=== PATIENT | female | born 1950 | race Caucasian/White ===

== ENCOUNTER → 2019-06-14 11:50 | Outpatient (CLI) | payer OTHER, SELFPAY | PROVIDERS: Visit Provider Orthopaedic Surgery | DX: Z01.818 Encounter for other preprocedural examination (principal); Z01.812 Encounter for preprocedural laboratory examination | CPT/HCPCS: 93005; 93010 ==

== ENCOUNTER 2019-06-27 07:38 | Inpatient (IN) | payer OTHER, SELFPAY ==
[2019-06-16 13:03] VITALS: BMI 24.7
[2019-06-27] VITALS (14 sets, daily range): BP systolic 92–129; BP diastolic 55–78; PULSE 59–102; RESP 13–18; TEMP 35.6–36.6; O2SAT 92–100; BMI 25.0
--- NOTE | 2019-06-27 06:00 | DI.RAD.S_ITS ---
PROCEDURE: XR HIP W PEL IF DONE RT 2V INDICATIONS: post-op TECHNIQUE: 1 view(s) of the pelvis acquired. COMPARISON: None. FINDINGS: Bones: Patient is status post right hip arthroplasty, with hardware components in expected positions. The hip joint appears congruent. The visualized bony structures appear intact. Moderate left hip joint degeneration. Soft tissues: Overlying postoperative changes are noted. No suspicious soft tissue densities. IMPRESSION: Right hip arthroplasty with prosthesis in anatomic alignment. Dictated by: Edie Ibarra M.D. on 06/27/2019 at 12:50 Approved by: Edie Ibarra M.D. on 06/27/2019 at 12:51
[2019-06-27] MEDS: LACTATED RINGERS 1,000 ML 42 ML IV ×2 (08:30→11:18)
[2019-06-27] MEDS: ACETAMINOPHEN 325 MG TABLET 975 MG PO ×3 (08:31→20:38)
[2019-06-27] MEDS: PREGABALIN 75 MG CAPSULE PO (08:32)
[2019-06-27] MEDS: CELECOXIB 200 MG CAPSULE PO (08:32)
--- NOTE | 2019-06-27 09:41 | PM.PREOP ---
Pre-operative Note Interval Note History & Physical reviewed/Exam performed by Physician: Yes Changes to H&P: No
--- NOTE | 2019-06-27 10:03 | SUR.OPER ---
Lateral on padded OR bed. Gel axillary roll. Arms secured on padded armboard with pillow supporting top arm. Padded hip positioner braces x4 - anterior and posterior chest and pelvis. Additional gel pad used anterior pelvis. Gel pad under bottom leg from knee to foot and secured with tape over sheet.
[2019-06-27] MEDS: CEFAZOLIN 2 GM/100 ML FROZ.PIGGY IV ×2 (10:15→17:46)
[2019-06-27] MEDS: KETOROLAC 30 MG/ML VIAL IV (10:51)
[2019-06-27] MEDS: MORPHINE 4 MG/ML INJ INJ (10:51)
[2019-06-27] MEDS: ROPIVACAINE 0.5% PF 5 MG/ML 20ML VIAL 60 ML INJ (10:51)
[2019-06-27] MEDS: TRANEXAMIC ACID 1,000 MG VIAL 1000 MG INJ ×2 (10:52→11:43)
--- NOTE | 2019-06-27 11:51 | P.OP_ITS ---
Operative Date/Time/Diagnoses Date of procedure: 06/27/19 Time of procedure: 11:51 Pre-op diagnosis: Right hip degenerative joint disease Post-op diagnosis: same Procedure & Clinicians Procedure: Right total hip arthroplasty (CPT code 06533 with floor covering printer assistant) Same procedure as scheduled: Yes Indications: Patient is an 69-year-old female with severe right hip DJD. The patient has pain with activities and at rest, limited ambulation and activity tolerance, difficulties with ADLs, and failure of conservative treatment. We have discussed the nature of condition, treatment options, risks and benefits, and patient elects to proceed with total hip arthroplasty and gives informed consent. Surgeon: Jonnathan Mcpherson Frit Coater: Mejia Dasilva Anesthesia Type: General and Spinal Operative Notes Closure Type: primary Specimen(s): none sent Prosthetic devices, grafts, tissues, transplants, or devices: Acetabulum: Pires and Nephew R3 acetabular component size 52 mm Femoral component: Pires [employer] Nephew Anthology stem size 9 with standard offset Femoral head: 36 mm + 4 Oxinium Estimated Blood Loss (mL): 200 Blood products transfused: none Procedure in detail: After satisfaction induction of anesthetic, and administration of IV antibiotics, the patient was positioned in the lateral decubitus position with all bony prominences well padded and pelvic position secured using a hip horticulture/floriculture teacher positioning device. Right hip and lower extremity prepped and draped in the usual sterile fashion, 1st dose of intravenous tranexamic acid was administered, then a longitudinal incision was created centered over the greater trochanter and carried sharply through the skin and subcutaneous tissues down to the fascia jr which was divided longitudinally and retracted with a Charnley retractor. External rotators visualize, cut, tagged, and retracted posteriorly, then the capsule was cut in a T-type fashion with the corners tagged and retracted. Hip was dislocated and femoral neck cut made according to preoperative templating. Acetabular retractors then placed, and the acetabular labrum and osteophytes were excised. The acetabulum was then sequentially reamed to 51 mm with an excellent circumferential ream and fit with the trial. The trial component was removed and a permanent size 52 mm Pires [employer] Nephew R3 acetabular component was selected, positioned, and impacted with satisfactory position and fixation achieved. Permanent liner was then inserted with the elevated lip directed posteriorly. Soft tissue then removed off the lateral femoral neck in the lateral neck was entered using a box osteotome. T- handled reamers placed down the canal followed by sequential broaching to 9 with the final broach left in place for trial reduction which demonstrated excellent leg length, range of motion, and stability characteristics with a 36 mm +4 trial ball. The trial and broach were removed, and a permanent size 9 Pires [employer] Nephew Anthology stem was selected and inserted with excellent position and fixation achieved. Another trial reduction yielded the above characteristics so the trial ball was exchanged for a permanent 36 mm +4 Oxinium ball. The hip was irrigated and reduced and excellent leg length range of motion and stability characteristics were achieved and maintained. Periarticular tissues were infiltrated with a combination of ropivacaine, morphine, and Toradol. The hip was copiously irrigated, and the capsule repaired with #2 Ethibond, and the piriformis was repaired back to the greater trochanter with the same. Fascia jr closed with interrupted #1 Ethibond sutures, and the subcutaneous tissues were closed in 2 layers of 0 Vicryl and 2 0 Vicryl. Skin was closed with felix and sterile dressings applied. Second dose of tranexamic acid was administered intravenously, and the anesthetic was terminated. Complications: none Post-operative Condition: stable Disposition: PACU Plan for aftercare: Patient will be admitted to the acute care [facility], and anticipate discharge on postop day 1 with follow-up in office in 10-14 days. Outpatient physical therapy will be arranged and patient will continue to observe posterior hip precautions. Patient will continue use of postoperative Lovenox for 10 days postop.
--- NOTE | 2019-06-27 12:16 | SUR.PHASEI ---
Report called to Adilia
--- NOTE | 2019-06-27 12:33 | SUR.PHASEI ---
Pt transferred to the floor with belongings bag, cane and glasses. VS stable. Report to Rupali Jay. IV saline locked. Spinal level at L3. Rt hip drsg cdi, +PP x2, no movement to ble.
[2019-06-27] MEDS: LACTATED RINGERS 1,000 ML 125 ML IV (13:14)
[2019-06-27] MEDS: ATORVASTATIN 20 MG TABLET PO (20:38)
[2019-06-28 00:04] VITALS: BP 114/67; PULSE 71; RESP 12; TEMP 37.2; O2SAT 97
[2019-06-28] MEDS: CEFAZOLIN 2 GM/100 ML FROZ.PIGGY IV (01:17)
[2019-06-28 03:40] VITALS: BP 101/60; PULSE 76; RESP 16; TEMP 36.5; O2SAT 96
[2019-06-28] MEDS: IBUPROFEN 400 MG TABLET PO (03:46)
[2019-06-28] MEDS: diphenhydrAMINE 50 MG/ML VIAL 25 MG IV (03:46)
[2019-06-28 05:44] LABS: Hematocrit 31.2 % (36-46); Hemoglobin 10.7 g/dL (12.0-16.0)
[2019-06-28 07:30] VITALS: BP 107/49; PULSE 73; RESP 16; TEMP 36.6; O2SAT 96
[2019-06-28] MEDS: ENOXAPARIN 40 MG/0.4 ML SYRINGE SUBCUT (08:58)
[2019-06-28 09:04] VITALS: PULSE 79; RESP 16; O2SAT 98
[2019-06-28] MEDS: ACETAMINOPHEN 325 MG TABLET 975 MG PO (09:12)
[2019-06-28] MEDS: OXYCODONE/ACETAMINOPHEN 5/325 TABLET 1 TAB PO (09:13)
--- NOTE | 2019-06-28 09:20 | PT.IIE ---
Current Diagnoses Unilateral primary osteoarthritis, right hip (06/27/19) Surgery Performed Operation Date: 06/27/19 09:45 Actual Procedures p Total Hip Arthroplasty(Right) - Jonnathan Mcpherson MD Surgical History (Last Updated 06/16/19 @ 13:11 by Bibi Herrera RN) Hx of bursectomy (Acute) Hx of decompressive lumbar laminectomy (Acute) Hx of tonsillectomy (Acute) Medical History (Last Updated 06/16/19 @ 13:11 by Bibi Herrera RN) BCC (basal cell carcinoma), ear (Acute) Easy bruisability (Acute) HTN (hypertension) (Acute) Pre-diabetes (Acute) Psoriasis (Acute) Physical Therapy Inpatient Evaluation/Re-Eval M1 PT/OT-IP Prior Functional Status Start: 06/28/19 13:51 Freq: NEEDED Status: Active Protocol: Document 06/28/19 09:20 AB (Rec: 06/28/19 14:00 AB [id number]) Medical Review Prior Functional Status Medical History Reviewed Yes Communication able to make needs known Mobility and Gait pt stated that she is modified independent with all mobilities and ambulation using SPC Social History Household Members significant other Living Arrangements House Number of Floors (Floors) 3 or More Floors Number of Stairs To Enter/Railing? pt stays on main level of the house has 2 steps to enter with R handle bar by side of the door Home Environment Standard Height Toilet,Walk in Shower,Built-In Shower Seat Home Equipment Front Wheel Walker,Straight Cane,Raised Toilet Seat Without Armrests,Hand Held Shower M2 PT-IP Current Condition Start: 06/28/19 13:51 Freq: NEEDED Status: Active Protocol: Document 06/28/19 09:20 AB (Rec: 06/28/19 14:00 AB [id number]) Physical Therapy Current Condition Current Condition Evaluation Date 06/28/19 Treatment Diagnosis s/p R TONY posterior approach; difficulty in walking Onset Date 06/27/19 Precautions Posterior Hip Precautions No Hip Flexion > 90 degrees,No Hip Internal Rotation,No Hip Adduction Weight Bearing Status Weight Bearing Status Weight Bear as Tolerated M3 PT-IP Subjective Start: 06/28/19 13:51 Freq: NEEDED Status: Active Protocol: Document 06/28/19 09:20 AB (Rec: 06/28/19 14:00 AB [id number]) Subjective Physical Therapy Visit Type Type Initial Evaluation Visit Start Time 09:20 Visit Stop Time 10:17 Total Visit Minutes 57 Number of QUARRYMAN Visits 0 Physical Therapy Visit Comments Patient Comments pt agreeable to do PT Patient Goals to go home Therapy Pain Assessment Pain When Pain Assessed At Rest Pain Present Pain Present Pain Reported Location Right Hip Intensity 4 Scale Used Numeric (1 - 10) Pain Management Techniques Re-positioning,Timing of Activity with Medications M4 PT-IP Mobility and Gait Start: 06/28/19 13:51 Freq: NEEDED Status: Active Protocol: Document 06/28/19 09:20 AB (Rec: 06/28/19 14:00 [id number]) PT-Bed Mobility Assessment Supine to Sit Supine to Sit Standby Assistance Sit to Supine Sit to Supine Standby Assistance Scooting Scooting to Edge of Bed Standby Assistance PT-Transfer Assessment Sit to and From Stand Sit to and from Stand Contact Guard Assistance,1 Person Assistance,Use of Upper Extremities Equipment Transfer Assistive Device Gait Belt,Front Wheeled Walker Orthotic/Prosthetic Devices or Brace: No Transfers Transfer Destination Chair Transfer Technique pt ambulated using FWW Transfer Ability Level of Assist Contact Guard Assistance,1 Person Assistance Comments Mobility Comments requires cues to maintain hip precautions Gait Assessment Gait Gait Assistance Required: Contact Guard Assist Distance (Feet) 100 Able to Maintain Weight Bearing Status Yes During Gait Assistive Devices Assistive Device Gait Belt,Front Wheeled Walker Orthotic/Prosthetic Devices or Brace: No Gait Deviations General Gait Pattern Antalgic,Decreased Stride Length,Decreased Feet Clearance Factors Limiting Gait Function Factors Limiting Gait Function Decreased Activity Tolerance, Decreased Strength,Difficulty Following Directions,Limited Range of Motion,Pain,Poor Balance,Poor Safety Awareness Comments Gait Comments requires cues to activate quad muscles Stair Climbing Assessment Evaluation Level of Assist On Stairs Minimal Assistance,1 Person Assistance Devices Stair Climbing Assistive Devices Straight Cane,Right Railing Technique/Endurance Stair Climbing Direction Ascend and Descend Stair Climbing Technique Step to Step Number of Steps Climbed 3 Query Text: Stair Climbing Set # Repetitions (reps) 2 Comments Stair Climbing Comments completed up/down steps using R rail and SPC requiring CGA to min A and max cues; completed up/down steps again using SPC and WEBSITE DESIGNER and requiring min A and max cues. PT-Balance Assessment Sitting Balance and Reactions Static Sitting Balance Ability Good Dynamic Sitting Balance Ability Good Standing Balance and Reactions Static Standing Balance Ability Fair Dynamic Standing Balance Ability Fair Device Used FWW M5 PT-IP Objective Assessments Start: 06/28/19 13:51 Freq: NEEDED Status: Active Protocol: Document 06/28/19 09:20 AB (Rec: 06/28/19 14:00 AB [id number]) Orientation Orientation/Cognition Level of Alertness Alert Orientation Name,Place,Situation Safety Awareness Decreased Safety Awareness Memory Description Short Term Impaired Gross Range of Motion Lower Extremity ROM Assessment Within Functional Limits Strength Lower Extremity Strength Assessment Bilaterally Impaired Comments Strength Comments RLE: 3+/5 LLE: 4-/5 Sensation Assessment Sensation Gross Sensation WNL Muscle Tone Muscle Tone WNL Yes M6 PT-IP Treatment Start: 06/28/19 13:51 Freq: NEEDED Status: Active Protocol: Document 06/28/19 09:20 AB (Rec: 06/28/19 14:00 AB [id number]) Physical Therapy Treatment Education Education Provided Precautions,Weight Bearing Status,Post-Op Packet,Safety M7 PT-IP Assessment and Plan Start: 06/28/19 13:51 Freq: NEEDED Status: Active Protocol: Document 06/28/19 09:20 AB (Rec: 06/28/19 14:00 AB [id number]) PT Summary Assessment and Plan Potential Rehabilitation Potential Good Status of Condition at Evaluation Stable Summary Impairments Pain,ROM,Strength,Balance, Coordination,Cognition,Bed Mobility,Transfers,Gait, Activity Tolerance Assessment Summary pt requiring CGA with mobility but requires min A with stair climbing. will have to conduct caregiver training later this afternoon. pt plans to go home and her significant other will assist her and is already set up for outpt PT. Goals Bed Mobility Goal Independent Transfer Goal Independent,Front Wheeled Walker Gait Goal Independent,Front Wheel Walker Gait Distance 200 Other Goals up/down 2 steps CGA SPC/WEBSITE DESIGNER. Days to Meet Goals 5 Frequency of Treatment Frequency Of Treatment Twice a Day Treatment Plan Physical Therapy Treatment Plan Bed Mobility Training,Transfer Training,Gait Training, Therapeutic Exercise,Balance Retraining,Post Op Education, Discharge Planning,Hot or Cold Pack,Neuromuscular Re-ed, Coordination Retraining,Manual Therapy Other Recommendations and Next Treatment caregiver training, ambulation Focus , stair climbing Recommendations To Nursing Amount of Assist Needed 1 Person Assist Discharge Recommendations PT Discharge Recommendations Home with Assistance, Outpatient PT
[2019-06-28 11:29] VITALS: BP 114/68; PULSE 66; RESP 16; TEMP 36.6; O2SAT 96
--- NOTE | 2019-06-28 13:38 | PT.IPTN ---
Current Diagnoses Unilateral primary osteoarthritis, right hip (06/27/19) Surgery Performed Operation Date: 06/27/19 09:45 Actual Procedures p Total Hip Arthroplasty(Right) - Jonnathan Mcpherson MD Physical Therapy Treatment Note M2 PT-IP Current Condition Start: 06/28/19 13:51 Freq: NEEDED Status: Active Protocol: Document 06/28/19 09:20 AB (Rec: 06/28/19 14:00 AB [id number]) Physical Therapy Current Condition Current Condition Evaluation Date 06/28/19 Treatment Diagnosis s/p R TONY posterior approach; difficulty in walking Onset Date 06/27/19 Precautions Posterior Hip Precautions No Hip Flexion > 90 degrees,No Hip Internal Rotation,No Hip Adduction Weight Bearing Status Weight Bearing Status Weight Bear as Tolerated M3 PT-IP Subjective Start: 06/28/19 13:51 Freq: NEEDED Status: Active Protocol: Document 06/28/19 13:22 CLB (Rec: 06/28/19 14:45 CLB [id number]) Subjective Physical Therapy Visit Type Type Treatment Note Visit Start Time 13:22 Visit Stop Time 13:38 Total Visit Minutes 16 Notes Pt up in room ambulating with SO upon arrival. Number of COMMUNITY ENGAGEMENT REPRESENTATIVE Visits 1 Physical Therapy Visit Comments Patient Comments Pt wanting to do stairs to d/c home. M4 PT-IP Mobility and Gait Start: 06/28/19 13:51 Freq: NEEDED Status: Active Protocol: Document 06/28/19 13:22 CLB (Rec: 06/28/19 14:45 CLB [id number]) PT-Bed Mobility Assessment Sit to Supine Sit to Supine Standby Assistance Scooting Scooting Up and Down in Bed Standby Assistance PT-Transfer Assessment Sit to and From Stand Sit to and from Stand Standby Assistance,1 Person Assistance,Use of Upper Extremities Equipment Transfer Assistive Device Gait Belt,Front Wheeled Walker Orthotic/Prosthetic Devices or Brace: No Transfers Transfer Destination Bed,Wheelchair Transfer Ability Level of Assist Standby Assistance,1 Person Assistance Gait Assessment Gait Gait Assistance Required: Standby Assistance Distance (Feet) 100 Able to Maintain Weight Bearing Status Yes During Gait Assistive Devices Assistive Device Gait Belt,Front Wheeled Walker Orthotic/Prosthetic Devices or Brace: No Gait Deviations General Gait Pattern Antalgic,Decreased Stride Length,Decreased Feet Clearance Factors Limiting Gait Function Factors Limiting Gait Function Decreased Activity Tolerance, Decreased Strength,Difficulty Following Directions,Limited Range of Motion,Pain,Poor Balance,Poor Safety Awareness Stair Climbing Assessment Evaluation Level of Assist On Stairs Contact Guard Assistance,1 Person Assistance Devices Stair Climbing Assistive Devices Straight Cane,Right Railing Technique/Endurance Stair Climbing Direction Ascend and Descend Stair Climbing Technique Step to Step Number of Steps Climbed 3 Stair Climbing Set # Repetitions (reps) 2 Comments Stair Climbing Comments Pt able to climb stairs with SO Tanya, pt had cane on left side and Tanya holding pts hand on right. Pt recalled step sequencing from morning session. M5 PT-IP Objective Assessments Start: 06/28/19 13:51 Freq: NEEDED Status: Active Protocol: Document 06/28/19 09:20 AB (Rec: 06/28/19 14:00 AB [id number]) Orientation Orientation/Cognition Level of Alertness Alert Orientation Name,Place,Situation Safety Awareness Decreased Safety Awareness Memory Description Short Term Impaired Gross Range of Motion Lower Extremity ROM Assessment Within Functional Limits Strength Lower Extremity Strength Assessment Bilaterally Impaired Comments Strength Comments RLE: 3+/5 LLE: 4-/5 Sensation Assessment Sensation Gross Sensation WNL Muscle Tone Muscle Tone WNL Yes M6 PT-IP Treatment Start: 06/28/19 13:51 Freq: NEEDED Status: Active Protocol: Document 06/28/19 09:20 AB (Rec: 06/28/19 14:00 AB [id number]) Physical Therapy Treatment Education Education Provided Precautions,Weight Bearing Status,Post-Op Packet,Safety M7 PT-IP Assessment and Plan Start: 06/28/19 13:51 Freq: NEEDED Status: Active Protocol: Document 06/28/19 13:22 CLB (Rec: 06/28/19 14:45 CLB [id number]) PT Summary Assessment and Plan Summary Impairments Pain,ROM,Strength,Balance, Coordination,Cognition,Bed Mobility,Transfers,Gait, Activity Tolerance Assessment Summary Pt required SBA for sit-stand and gait. Pt required CGA up steps and Min A down steps leaning on SO Tanya on right side. Pt recalled 3/3 precautions and demonstrated understanding with all mobility. Pt seems able to d/c home with assistance of SO when medically stable. Goals Bed Mobility Goal Independent Transfer Goal Independent,Front Wheeled Walker Gait Goal Independent,Front Wheel Walker Gait Distance 200 Other Goals up/down 2 steps CGA SPC/LETTER STAMPING MACHINE OPERATOR. Days to Meet Goals 5 Frequency of Treatment Frequency Of Treatment Twice a Day Treatment Plan Physical Therapy Treatment Plan Bed Mobility Training,Transfer Training,Gait Training, Therapeutic Exercise,Balance Retraining,Post Op Education, Discharge Planning,Hot or Cold Pack,Neuromuscular Re-ed, Coordination Retraining,Manual Therapy Recommendations To Nursing Amount of Assist Needed 1 Person Assist Discharge Recommendations PT Discharge Recommendations Home with Assistance, Outpatient PT
--- NOTE | 2019-06-28 13:46 | CM.DANOTE ---
Addendum entered by Jane Pires R.N. 06/28/19 14:19: Insurance: 1st payer garcia 2nd payer: self pay Plan: DC plan is to go home with help from life partner( Sarah) and F/U with Dr. Mcpherson next week and start OP PT on 07/05/2019 in [place]. Patient has no identified d/c planning needs at this time. Jane Pires RN Original Note: DCP Assessment: EMR reviewed: Patient is a 69 yr old Female. Patient admitted for a Rt TONY Preformed by Dr. Mcpherson. PCP: not noted. Met with patient and partner (sarah) at bedside, patient is alert and oriented. Explained CM/RN role. patient would like to discharge home today 06/28/2019. Patient is I with all ADL's. PT did step evaluation and patient passed PT recommends home with OP PT. Patient has OP PT set up for next Thursday07/05/2019 and has a F/U with Dr. Mcpherson on 07/04/2019 as well. Patient has FWW and a cane at home. patient Discharge Planning/Care Management CM Discharge Assessment Start: 06/28/19 13:44 Freq: Status: Active Protocol: Document 06/28/19 13:44 HS (Rec: 06/28/19 13:46 [id number]) Discharge Planning Assessment Assigned Campus Security Officer Jane Pires Rn DPOA/Assigned Designee Name Sarah Santiago (life partner) Advance Directives? Yes Advance Directives on File No History Provided By Patient,Family Member Has Patient been admitted in last 30 No days? Prior Living Arrangements House Household Members significant other Type of transporation used prior to Drives own vehicle admit Independent with ADL's Yes Is patient alert and oriented? Yes Caregiver for Another No DME Already Rented / Owned FWW / Walker,Cane Patient/Family Preference OP PT Therapy Barriers to Discharge No Discharge Plan Home Referrals Initiated None needed If patient plan is home with home health No : Has signed face to face form been completed? If patient plan is SNF: Has PASSR been No completed? Whiteboard Updated in Patient Room with Yes name and ext. # of Campus Security Officer Review Status In Process Next Review Type Continued Stay Review Pre-Anesthesia Assessment Start: 06/16/19 13:03 Freq: Status: Complete Protocol: Document 06/16/19 13:03 CAB (Rec: 06/16/19 13:31 [facility] [id number]) Pre-Anesthesia Assessment Patient Information Reviewed Via Phone Assessment Assessment Completed With Patient Diagnostic Results BMP/CMP,CBC Comment Outside labs scanned to record , no EKG available at time of assessment Primary Care Provider Janett Stanton Seen Specialist in Last 12 Months Yes Specialist Seen Orthopedist Primary Language [place] Representative Required No Height 173.99 cm Weight 74.843 kg Body Mass Index (BMI) 24.7 Hearing Ability Normal Visual Assist Glasses Dentition Type Teeth, Natural Present Barriers to Learning None Other Aids No Hx Anesthesia Reactions No Hx Family Anesthesia Reaction No Hx Malignant Hyperthermia No Hx Blood Transfusions No Anesthesia Review Requested No alcohol intake former Alcohol Intake Frequency Other: Quit 3-4 months ago, watching caloric intake Smoking Status Former smoker Tobacco type cigarettes Has it been 2 weeks or less since Yes patient quit smoking how long ago did patient quit smoking Quit 2 weeks ago for surgery, smoked mostly all of my life Substance Use Type does not use Pain Present Pain Reported Musculoskeletal Symptoms Abnormal Gait,Difficulty Walking,Joint Pain,Limited Range of Motion,Muscle Cramps History of Falling (Recent or History of No ) Patient is completely paralyzed or No completely immobile Prosthesis or Orthotic Device Cane Mental Status Oriented to own ability Is patient on oxygen? No Does patient have CROOK/SOB No Hx Sleep Apnea No Currently Taking a Beta Ivan No Can You Climb a Flight of Stairs Without Yes SOB Hx Chest Pain No Hx SOB No Hx Syncope or Dizziness No Anti-Coagulant Therapy No Has a Abrading Machine Tender No Cardiac Testing No Hx Pacemaker/ICD No Pacemaker Rep Required? No Cardiac Clearance Received Not Applicable Diet Type At Home Regular,Low Carb dysphagia No Urinary Catheter Present No Hx Urinary Self Catheterization No Diabetes No: Pre-diabetes Patient No Lactating No Hx Drug Resistant Organism No Presence of External or Internal Medical No Devices Have you traveled outside the [facility] in the last 30 days? Marital Status Single Lives With significant other Prior Living Arrangements House Number of Floors (Floors) 3 or More Floors Number of Stairs To Enter/Railing? 2 steps Support System Sibling(s),Significant Other Does the Patient Have Assistance After Yes Surgery Patient Discharge Plan Description Return Home Comment Pt not advised on length of stay per surgeon Feels Safe in Current Environment Yes Been Physically Hurt or Threatened By a No Person in Current Environment Do you have thoughts of harming yourself None or others? Are you currently considering suicide? No Do you have a plan to hurt yourself or No Plan others? Do You Have Any Spiritual Beliefs That No May Affect Your HC Choices? Do You Have Any Cultural Practices That No May Affect Your HC Choices? Who Can We Speak to About Patient's Care Family, friends Identifying Code for Release of Patient Declines to issue Information Health Care Proxy/Next of Kin Sarah (S.O.) Health Care Proxy Emergency Contact Name Sarah (S.O.) Emergency Contact Advance Directives? Yes Advance Directives on File No Requested Patient Bring Advanced Yes Directives DOS Power of Pet Care Attendant Yes Power of Pet Care Attendant Name Sarah (S.O.) Power of Pet Care Attendant PAC Instructions Do not shave/clip surgical site,Durable medical equipment ,Medications to take/avoid, Nasal antibiotic,No ETOH/ petroleum product on skin DOS, NPO,Post-op transportation,Pre -surgical wash,Sturdy shoes/ comfortable clothes,Do not bring valuables and remove jewelry
--- NOTE | 2019-06-28 14:06 | PC.NURSE ---
Pt. dressing changed at 1400. Incision site stapled, approximated, with no redness, swelling, drainage, bleeding, or discharge noted. Small amount of bleeding on the removed dressing. Applied a 10 inch aquacel dressing to the incision site. Patient tolerated the dressing change well. Lorraine Ramos, SN
--- NOTE | 2019-06-28 14:45 | PC.NURSE ---
Discharge: Feels ready for d/c home. Seen by PA and given instructions. Seen by PT/OT and given instructions. Gave own lovenox using correct tech. Discussed sharps disposal and site rotation. Pt feels comfortable giving injections. Rx for lovenox was rejected through [facility]. It appears to have transmitted. Unable to resolve issue at this level. MD's office called and they will call in rx for lovenox for pt. Pt is aware issue occurred. Reviewed instruction sheets for falls, total hip, constipation, and lovenox. Questions answered. Dressing to rt hip changed to aquacel, wound care instructions given. Friend here to take pt home. Pt d/c home via auto w/friend.
--- NOTE | 2019-06-28 16:10 | PM.DS.1 ---
History of Present Illness History of Present Illness Date Patient Seen: 06/28/19 Time Patient Seen: 07:30 Chief complaint: [id number] Narrative: Patient is an 69-year-old female with severe right hip DJD. The patient has pain with activities and at rest, limited ambulation and activity tolerance, difficulties with ADLs, and failure of conservative treatment. We have discussed the nature of condition, treatment options, risks and benefits, and patient elects to proceed with total hip arthroplasty and gives informed consent. Patient did well overnight. No complaints. Pain well controlled with tylenol. Patient was able to ambulate with a walker to the bathroom to void. Patient denies fever, chills, nausea, vomiting, chest pain, shortness of breath, calf pain. Discharge Providers Provider Date of admission: 06/27/19 07:38 Discharge Date: 06/28/19 Consults: 06/27/19 06:00 Consult to Anesthesiology Routine Comment: Consulting Provider: Anesthesiologist Reason for consultation: Regional block for post operative pain control 06/27/19 12:35 Consult to Discharge Planning Routine Comment: Consult to Physical Therapy Evaluate & Treat Comment: Physician Instructions: post op TONY protocol Consult to Respiratory Therapy Evaluate & Treat Comment: Physician Instructions: Evaluate and treat Discharge provider: Menedz Lopez PA-C Summary Hospital Course Discharge Diagnosis: s/p right total hip arthroplasty, posterior approach prediabetic hypertension hyperlipidemia arthritis Hospital Course: Patient admitted to hospital s/p right total hip arthroplasty, posterior approach, with Dr. Mcpherson. Post op day 1, patient was ready for discharge home. Hospital course was unremarkable. Patient mobilized with physical therapy prior to discharge. Patient ate and voided without difficulty or assistance prior to discharge. Pain was well controlled with tylenol and patient has prescriptions for oxycodone, tylenol and ibuprofen at home. Patient has outpatient physical therapy scheduled. Lovenox prescribed for DVT prophylaxis. Status at Discharge Cognitive/behavioral status at discharge: oriented Functional status at discharge: uses cane/walker Overall status at discharge: patient is progressing back to baseline Time Spent with Patient Time spent: Less than 30 minutes Exam Vital Signs (past 8 hours): - 06/28/19 09:04 06/28/19 11:29 Temperature 97.8 F Pulse Rate 79 66 Respiratory Rate 16 16 Blood Pressure 114/68 Pulse Oximetry 98 96 Oxygen Delivery Method Room Air Oxygen Flow Rate 0 Narrative Exam Narrative: 69 year old female is lying comfortably in bed, in no apparent distress. A&Ox3. Dressing is CDI on right hip. Right hip is dry, warm, without lesions or rashes. Patient is able to actively dorsiflex/plantar flex. Sensation grossly intact to light touch in lower extremities bilaterally. Capillary refill <2 seconds in lower extremities bilaterally. Dorsalis pedis 2+ bilaterally. Objective Labs Result Diagrams: 06/28/19 05:30 Labs: Laboratory Results - last 24 hr 06/28/19 05:30 Hgb 10.7 L Hct 31.2 L Discharge Plan Discharge Plan Patient Disposition: Home Discharge comment: Discharge home pending PT clearance Discharge Med Rec/Prescriptions Prescriptions: New ibuprofen 400 mg tablet 400 mg PO Q4H PRN (Reason: inflammation) Qty: 60 RF: 0 acetaminophen [Tylenol Extra Strength] 500 mg tablet 500 mg PO Q4H PRN (Reason: pain) Qty: 60 RF: 0 enoxaparin [Lovenox] 40 mg/0.4 mL Syringe 40 mg subcut DAILY Qty: 9 RF: 0 Continued atorvastatin 20 mg Tablet 20 mg PO BEDTIME RF: 0 lisinopril 10 mg Tablet 10 mg PO DAILY RF: 0 hydrochlorothiazide 12.5 mg Capsule 12.5 mg PO QAM RF: 0 Discontinued ibuprofen 200 mg Tablet 400 mg PO QID PRN (Reason: Pain) RF: 0 acetaminophen 500 mg Tablet 1,000 mg PO QID PRN (Reason: Pain (Scale Score 1-3)) RF: 0 Provider Discharge Instructions Diet: Regular Activity: Weight bearing as tolerated. Follow [facility] precautions for total hip arthroplasty (posterior) Cold/Heat Therapy: Continue cold/heat therapy as needed Skin/Wound/Dressing Care Report to your healthcare provider any signs of infection, such as:: chills, fever, increased pain, unusual drainage and unusual redness Dressing: Aquacell dressing can be used in shower. Don't saturate the dressing (e.g. bath, swimming pool). If dressing becomes saturated, contact the office. Visit Report/Discharge Packet Instructions: DI for Hip Replacement, DI for Constipation, How to Prevent Falls, Enoxaparin Injection Visit Report Forms: Patient Portal/API, Stroke Signs & Symptoms Discharges patient from system. Discharge Date/Time: 06/28/19 14:00 Quality VTE Deep Vein Thrombosis/Pulmonary Embolism Present on Admission: No
== END 2019-06-28 14:00 | disposition home or self-care (01) | DRG 470 ==
PROVIDERS: Admitting Provider Orthopaedic Surgery; Visit Provider Orthopaedic Surgery
PROC: 0SR90JZ Replacement of Right Hip Joint with Synthetic Substitute, Open Approach (ICD-10-PCS; CPT 27130; principal; 2019-06-27 09:45)
DX: M16.11 Unilateral primary osteoarthritis, right hip (principal); I10 Essential (primary) hypertension; E78.5 Hyperlipidemia, unspecified; Z87.891 Personal history of nicotine dependence
CPT/HCPCS: 36415; 73502; 85014; 85018; 94760; 97116; 97161; 97530; C1776; J0690; J1200; J1650; J1885; J2250; J2270; J2274; J2405; J2704; J3010